=== PATIENT | female | born 1980 | race Caucasian/White ===

== ENCOUNTER 2017-02-21 21:15 | Emergency (ER) | payer OTHER | END 2017-02-21 23:27 | disposition home or self-care (01) | LOC: ER 21:15 | DX: R11.2 Nausea with vomiting, unspecified (principal); R19.7 Diarrhea, unspecified; F17.210 Nicotine dependence, cigarettes, uncomplicated | CPT/HCPCS: 36415; 80307; 96361; 96365; 96367; 96375; 96376; J0696; J1885; J2550 ==